=== PATIENT | male | born 1940 | race Caucasian/White ===

== ENCOUNTER → 2016-08-13 | Outpatient (CLI) | payer MEDICARE ==
[~2016-08-13] MED LIST: AMBIEN 10MG10 M1 PO; ATIVAN 1MG T1 MG/TAB PO; LASIX 20MG TABL20 MG PO; MULTIPLE VITAMI1 TAB PO; NASONEX0.05 MG/AC NS; OMEGA 31000 MG PO
== END ==
LOC: COL.RAD 07:06
DX: K82.8 Other specified diseases of gallbladder (principal); K74.69 Other cirrhosis of liver; I85.00 Esophageal varices without bleeding; R74.8 Abnormal levels of other serum enzymes

== ENCOUNTER → 2017-06-01 | Outpatient (CLI) | payer MEDICARE | LOC: COL.RAD 08:11 | DX: K76.89 Other specified diseases of liver (principal); K82.9 Disease of gallbladder, unspecified ==

== ENCOUNTER → 2018-02-15 | Outpatient (CLI) | payer MEDICARE | LOC: COL.RAD 07:20 | DX: C91.10 Chronic lymphocytic leukemia of B-cell type not having achieved remission (principal); K74.60 Unspecified cirrhosis of liver; K80.20 Calculus of gallbladder without cholecystitis without obstruction ==

== ENCOUNTER → 2019-04-06 | Outpatient (CLI) | payer MEDICARE | LOC: COL.RAD 07:00 | DX: C91.10 Chronic lymphocytic leukemia of B-cell type not having achieved remission (principal); K74.60 Unspecified cirrhosis of liver; R74.8 Abnormal levels of other serum enzymes; D69.6 Thrombocytopenia, unspecified | CPT/HCPCS: A9585 ==